=== PATIENT | female | born 1955 | race Asian ===

== ENCOUNTER 2016-12-29 07:24 | Day surgery (SDC) | payer OTHER ==
[~2016-12-29] VITALS: Ht 162.6 cm; Wt 62.7 kg
[2016-12-29 08:54] VITALS: Ht 162.6 cm; Wt 62.7 kg
[2016-12-29] MEDS ORDERED: COLACE (08:56)
[2016-12-29] MEDS ORDERED: LISINOPRIL (08:56)
[2016-12-29] MEDS ORDERED: FENTAnyl 50 MCG/ML VIAL ONE (10:31)
[2016-12-29] MEDS ORDERED: MIDAZOLAM 1 MG/ML 2 ML INJ ONE (10:31)
--- NOTE | 2016-12-29 10:35 | OPPN ---
Date/Time of Note Date/Time of Note DATE: 12/29/16 TIME: 10:34 Operative Report Preoperative Diagnosis Screening Postoperative Diagnosis Internal hemorrhoids No colon neoplasm was identified Operation/Procedure Performed Colonoscopy Surgeon see signature line bus assistant None Anesthesia: moderate sedation Estimated blood loss: none Transfusion Required none Specimen None Grafts/Implants none Complications none INDIRA MANZO MD Dec 29, 2016 10:35
--- NOTE | 2016-12-29 10:35 | OPPN ---
Date/Time of Note Date/Time of Note DATE: 12/29/16 TIME: 10:34 Operative Report Preoperative Diagnosis Screening Postoperative Diagnosis Internal hemorrhoids No colon neoplasm was identified Operation/Procedure Performed Colonoscopy Surgeon see signature line bilingual medical assistant None Anesthesia: moderate sedation Estimated blood loss: none Transfusion Required none Specimen None Grafts/Implants none Complications none INDIRA MANZO MD Dec 29, 2016 10:35
--- NOTE | 2016-12-29 10:35 | OPPN ---
Date/Time of Note Date/Time of Note DATE: 12/29/16 TIME: 10:34 Operative Report Preoperative Diagnosis Screening Postoperative Diagnosis Internal hemorrhoids No colon neoplasm was identified Operation/Procedure Performed Colonoscopy Surgeon see signature line operating room assistant None Anesthesia: moderate sedation Estimated blood loss: none Transfusion Required none Specimen None Grafts/Implants none Complications none INDIRA MANZO MD Dec 29, 2016 10:35
--- NOTE | 2016-12-30 06:20 | GILP ---
DATE OF PROCEDURE: 12/29/2016 NAME OF PROCEDURE: Colonoscopy. SURGEON: Indira Subramanian MD PREOPERATIVE DIAGNOSIS: Screening colonoscopy. POSTOPERATIVE DIAGNOSES: 1. Colonoscopy all the way to the cecum. 2. Internal hemorrhoids. 3. No colon neoplasm was identified. INDICATION FOR THE PROCEDURE: Ms. Sharifa Montgomery is a 61-year-old female patient who was scheduled fo r screening colonoscopy. The procedure and possible complications were well explained to the patient, she understood, and con sented to the procedure. DESCRIPTION OF PROCEDURE: Under the influence of fentanyl and Versed, the colonoscope was carefully introduced in the rectum and, under direct vision, it was advanced all the way to the cecum. FINDINGS: The patient had internal hemorrhoids. No colon neoplasm was identified. She tolerated the procedure very well and there was no complication from the procedure. At the end of the procedure, she was awake with stable vital signs and she was discharged home to the care of h er family. IMPRESSION: 1. Colonoscopy all the way to the cecum. 2. Internal hemorrhoids. 3. No colon neoplasm was identified. PLAN: Next screening colonoscopy in 10 years. Dictated By: INDIRA JEAN-BAPTISTE/LEXI Conf#: [id number] DID#: [id number]
== END 2016-12-29 21:04 | disposition home or self-care (01) ==
LOC: GIL 07:24
PROVIDERS: ATTEND Internal Medicine Gastroenterology
DX: Z12.11 Encounter for screening for malignant neoplasm of colon (principal); K64.8 Other hemorrhoids; I10 Essential (primary) hypertension
CPT/HCPCS: 45378; J2250; J3010; Z7610